=== PATIENT | female | born 1985 | race Hispanic/Latino ===

== ENCOUNTER 2018-01-27 03:23 | Inpatient (IN) | payer BC ==
[2018-01-27] MEDS ORDERED: LACTATED RINGERS 1,000 ML ONE (03:35)
[2018-01-27] MEDS ORDERED: XYLOCAINE 2% INFILTRATI ONE (03:37)
[2018-01-27] MEDS ORDERED: ePHEDrine SULFATE IV PRN ×2 (03:37→06:33)
[2018-01-27] MEDS ORDERED: MINERAL OIL PO PRN (03:37)
[2018-01-27] MEDS ORDERED: ZOFRAN IV PRN (03:37)
[2018-01-27] MEDS ORDERED: SUBLIMAZE IV PRN (03:37)
[2018-01-27] MEDS ORDERED: BRETHINE SUB-Q PRN (03:37)
--- NOTE | 2018-01-27 03:47 | History and Physical Report ---
History of Present Illness Date of examination: 01/27/18 (pt presents in active labor) History of present illness: EDC Calculations LMP: 01/21/2018 Past History : 4 Term Births: 2 Premature Births: 0 Living Children: 2 Para: 2 Mult. Births: 0 Prev : 0 Aborta: 1 Elect. Ab: 1 Spont. Ab: 0 Ectopics: 0 # 1 Delivery date: 02/16 Delivery type: EAB # 2 Delivery date: 10/06/2013 Weeks Gestation: 41 Delivery type: Vaginal Anesthesia type: epidural Delivery location: [facility] Sex: female weight: 7.25 # 3 Delivery date: 09/02/2015 Weeks Gestation: 41 Delivery type: Vaginal Hours of labor: 24 Anesthesia type: epidural Delivery location: [facility] Infant Sex: male weight: 8.75 Name: Sg Comments: Induction Past Medical History: Reviewed history from 10/03/2009 and no changes required: Negative Past Medical History Past Surgical History: D&C: (2011) Past Medical History 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 Infection History Hx of STD: none HIV Risk Eval: low risk Hepatitis B Risk Eval: low risk Personal hx. of genital herpes: no Genetic History Congenital Heart Defect: Mom: no Dad: no Monica Disease: Mom: no Dad: no Thalassemia Mom: no Dad: no Neural Tube Defect Mom: no Dad: no Down's Syndrome Mom: no Dad: no Michael-Sachs Mom: no Dad: no Sickle Cell Disease/Trait Mom: no Dad: no Hemophilia Mom: no Dad: no Muscular Dystrophy Mom: no Dad: no Cystic Fibrosis Mom: no Dad: no [place] Chorea Mom: no Dad: no Mental Retardation Mom: no Dad: no Fragile X Mom: no Dad: no Other Genetic/Chromosomal Disorder Mom: no Dad: no Child w/other defect Mom: no Dad: no Active Medications (reviewed today): JENI-BE 0.35 MG ORAL TABLET (NORETHINDRONE) 1 tablet q day Current Allergies (reviewed today): No known allergies Past History - Obstetrical History Expected Date of Delivery: 01/21/18 Actual Gestation: 40 Week(s) 6 Day(s) : 4 Para: 2 Hx # Term Pregnancies: 2 Number of Pregnancies: 0 Spontaneous Abortions: 0 Induced : 1 Number of Living Children: 2 Medications and Allergies Allergies Allergy/AdvReac Type Severity Reaction Status Date / Time No Known Allergies Allergy Verified 10/05/13 04:22 Home Medications Medication Instructions Recorded Confirmed Last Taken Type Acetaminophen [Tylenol] 650 mg PO Q6HR PRN 10/06/13 09/02/15 10/05/13 21:00 History 650 Calcium Carbonate [Tums] 500 mg PO Q4HR 10/06/13 09/02/15 10/02/13 19:00 History 500 Vits96/Iron Fum/Folic 1 tab PO DAILY 10/06/13 09/02/15 09/01/15 09:00 History [ Tablet] 1 Ibuprofen [Motrin 800 MG tab] 800 mg PO Q8HR PRN #30 tablet 09/03/15 Unknown Rx Active Meds: Active Medications Ephedrine Sulfate (Ephedrine Sulfate) 10 mg IV Q2M PRN PRN Reason: Hypotension Fentanyl (Sublimaze) 100 mcg IV Q2H PRN PRN Reason: Labor Pain Lactated Ringer's (Lactated Ringers) 1,000 mls @ 125 mls/hr IV DIRECT LINDA Oxytocin/Sodium Chloride (Pitocin/Ns 20 Unit/1000ml Drip) 20 units in 1,000 mls @ 125 mls/hr IV DIRECT LINDA Oxytocin/Sodium Chloride (Pitocin/Ns 30 Unit/500ml) 30 units in 500 mls @ 4 mls /hr IV TITR LINDA; Protocol Lidocaine (Xylocaine 2%) 20 ml INFILTRATI ONCE ONE Stop: 01/27/18 03:38 Mineral Oil (Mineral Oil) 30 ml PO QHS PRN PRN Reason: Constipation Ondansetron HCl (Zofran) 4 mg IV Q8H PRN PRN Reason: Nausea And Vomiting Terbutaline Sulfate (Brethine) 0.25 mg SUB-Q ONCE PRN PRN Reason: Hyperstimulation/Hypertonicity - Vital Signs Vital signs: Vital Signs Pulse BP 90 132/85 01/27/18 03:42 01/27/18 03:42 Temp Pulse Resp BP Pulse Ox 90 132/85 01/27/18 03:42 01/27/18 03:42 - Physical Exam Breasts: Positive: deferred Cardiovascular: Regular rate, Normal S1, Normal S2 Lungs: Positive: Normal air movement Abdomen: Positive: normal appearance, soft, normal bowel sounds. Negative: distention, tenderness Genitourinary (Female): Positive: normal external genitalia Vulva: both: normal Vagina: Positive: normal moisture. Negative: discharge Cervix: Negative: lesion, discharge Uterus: Positive: normal size, normal contour Adnexa: both: normal Anus/Rectum: Positive: normal perianal skin, heme negative. Negative: rectal mass, hemorrhoids Extremities: Positive: normal Deep Tendon Reflex Grade: Normal +2 - Obstetrical FHR: category 1 Uterine Contraction Monitor Mode: External Cervical Dilatation: 5 Cervical Effacement Percentage: 90 station: -1 Uterine Contraction Pattern: Regular Uterine Tone Measurement Phase: Resting Uterine Contraction Intensity: Moderate Results All other labs normal. GBS Negative with 35wk testing HBsAg Screen Negative Negative *1 RPR Non Reactive Non Reactive *2 Rubella Antibodies, IgG 4.20 index Immune >0.99 *3 Non-immune <0.90 Equivocal 0.90 - 0.99 Immune >0.99 ABO Grouping A *4 Rh Factor Positive *5 Please note: Prior records for this patient's ABO / Rh type are not available for additional verification. Antibody Screen Negative Negative *6 WBC 8.3 x10E3/uL 3.4-10.8 *7 RBC 4.09 x10E6/uL 3.77-5.28 *8 Hemoglobin 12.2 g/dL 11.1-15.9 *9 Hematocrit 37.4 % 34.0-46.6 *10 MCV 91 fL 79-97 *11 MCH 29.8 pg 26.6-33.0 *12 MCHC 32.6 g/dL 31.5-35.7 *13 RDW 14.1 % 12.3-15.4 *14 Platelets 286 x10E3/uL 150-379 *15 Neutrophils 69 % Not Estab. *16 Lymphs 21 % Not Estab. *17 Monocytes 8 % Not Estab. *18 Eos 2 % Not Estab. *19 Basos 0 % Not Estab. *20 ! Immature Cells <No Reported Value> *21 Neutrophils (Absolute) 5.7 x10E3/uL 1.4-7.0 *22 Lymphs (Absolute) 1.7 x10E3/uL 0.7-3.1 *23 Monocytes(Absolute) 0.6 x10E3/uL 0.1-0.9 *24 Eos (Absolute) 0.2 x10E3/uL 0.0-0.4 *25 Baso (Absolute) 0.0 x10E3/uL 0.0-0.2 *26 ! Immature Granulocytes 0 % Not Estab. *27 ! Immature Grans (Abs) 0.0 x10E3/uL 0.0-0.1 *28 ! NRBC <No Reported Value> *29 Hematology Comments: <No Reported Value> *30 Tests: (2) HB Solu + Rflx Frac (922518) Hemoglobin (Hgb) Solubility Negative Negative *31 Tests: (3) Panel 322828 (003174) HIV Screen 4th Generation wRfx Non Reactive Non Reactive *32 Tests: (4) HCV Ab w/Rflx to Verification ([id number]) ! HCV Ab 0.1 s/co ratio 0.0-0.9 *33 Tests: (5) Comment: ([id number]) ! Comment: SPRCS *34 Non reactive HCV antibody screen is consistent with no HCV infection, unless recent infection is suspected or other evidence exists to indicate HCV infection. Tests: (6) Urine Culture, Routine (809918) Urine Culture, Routine Final report *35 Tests: (7) Result ([id number]) ! Result 1 MUG *36 Mixed urogenital adri 25,000-50,000 colony forming units per mL Assessment and Plan 32yo @ 40w6d in active labor. SVE 5,90,-1 GBS negative Orders in EMR Anticipate delivery
[2018-01-27] MEDS ORDERED: LACTATED RINGERS 1,000 ML IV SCH (04:00)
[2018-01-27] MEDS ORDERED: PITOCin/NS 30 UNIT/500ML 30 UNITS/500 ML BAG IV SCH (04:00)
[2018-01-27 04:38] LABS: Hematocrit 34.1 % (30.3-42.9); Hemoglobin 11.4 gm/dl (10.1-14.3); Mean Corpuscular HGB Conc 34 % (30-34); Mean Corpuscular Hemoglobin 30 pg (28-32); Mean Corpuscular Volume 89 fl (79-97); Platelet Count 215 K/mm3 (140-440); Red Blood Count 3.83 M/mm3 (3.65-5.03); Red Cell Distribution Width 14.2 % (13.2-15.2)
[2018-01-27] MEDS ORDERED: NARCAN 2 MG/2 ML IV PRN (06:33)
--- NOTE | 2018-01-27 06:35 | Anesthesia Consultation ---
Anesthesia Consult and Med Hx Date of service: 01/27/18 - Airway Anesthetic Teeth Evaluation: Good ROM Head & Neck: Adequate Mental/Hyoid Distance: Adequate Mallampati Class: Class II Intubation Access Assessment: Probably Good - Pulmonary Exam CTA: Yes - Cardiac Exam Cardiac Exam: RRR - Pre-Operative Health Status ASA Pre-Surgery Classification: ASA2 Proposed Anesthetic Plan: Epidural, Spinal - Pulmonary Hx Smoking: No Hx Asthma: No COPD: No Hx Pneumonia: No - Cardiovascular System Hx Hypertension: No - Central Nervous System Hx Seizures: No Hx Psychiatric Problems: No - Endocrine Hx Renal Disease: No Hx End Stage Renal Disease: No Hx Hypothyroidism: No Hx Hyperthyroidism: No - Hematic Hx Anemia: No Hx Sickle Cell Disease: No - Other Systems Hx Alcohol Use: No
--- NOTE | 2018-01-27 06:51 | Progress Note ---
Assessment and Plan All concerns explained to pt and SO by Close observation. Pt A&O x 3. FHR Cat 1. SVE 8,100,-1 states do NOT start pump w/o anesthesia assessment. Will continue monitoring Anticipate delivery. Subjective - Subjective Date of service: 01/27/18 (+ test dose with epidural; maternal tachycardia and mildly altered mental status) Interval history: EDC Calculations LMP: 01/21/2018 Past History : 4 Term Births: 2 Premature Births: 0 Living Children: 2 Para: 2 Mult. Births: 0 Prev : 0 Aborta: 1 Elect. Ab: 1 Spont. Ab: 0 Ectopics: 0 # 1 Delivery date: 02/16 Delivery type: EAB # 2 Delivery date: 10/06/2013 Weeks Gestation: 41 Delivery type: Vaginal Anesthesia type: epidural Delivery location: [facility] Infant Sex: female weight: 7.25 # 3 Delivery date: 09/02/2015 Weeks Gestation: 41 Delivery type: Vaginal Hours of labor: 24 Anesthesia type: epidural Delivery location: [facility] Sex: male weight: 8.75 Name: Sg Comments: Induction Past Medical History: Reviewed history from 10/03/2009 and no changes required: Negative Past Medical History Past Surgical History: D&C: (2011) Past Medical History 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 Infection History Hx of STD: none HIV Risk Eval: low risk Hepatitis B Risk Eval: low risk Personal hx. of genital herpes: no Genetic History Congenital Heart Defect: Mom: no Dad: no Monica Disease: Mom: no Dad: no Thalassemia Mom: no Dad: no Neural Tube Defect Mom: no Dad: no Down's Syndrome Mom: no Dad: no Michael-Sachs Mom: no Dad: no Sickle Cell Disease/Trait Mom: no Dad: no Hemophilia Mom: no Dad: no Muscular Dystrophy Mom: no Dad: no Cystic Fibrosis Mom: no Dad: no [place] Chorea Mom: no Dad: no Mental Retardation Mom: no Dad: no Fragile X Mom: no Dad: no Other Genetic/Chromosomal Disorder Mom: no Dad: no Child w/other defect Mom: no Dad: no Active Medications (reviewed today): JENI-BE 0.35 MG ORAL TABLET (NORETHINDRONE) 1 tablet q day Current Allergies (reviewed today): No known allergies Patient reports: movement normal Objective - Vital Signs Vital Signs: Vital Signs - 12hr 01/27/18 01/27/18 01/27/18 03:39 03:42 04:25 Temperature 98.7 F Pulse Rate 90 90 93 H Respiratory 18 16 Rate Blood Pressure 132/85 Blood Pressure 132/85 [Left] Blood Pressure 126/77 [Right] O2 Sat by Pulse 99 Oximetry 01/27/18 01/27/18 01/27/18 04:31 05:39 05:44 Temperature Pulse Rate 84 85 96 H Respiratory Rate Blood Pressure 126/77 Blood Pressure [Left] Blood Pressure [Right] O2 Sat by Pulse 99 99 99 Oximetry 01/27/18 01/27/18 01/27/18 05:49 05:52 05:54 Temperature Pulse Rate 84 91 H 87 Respiratory Rate Blood Pressure 120/62 Blood Pressure [Left] Blood Pressure [Right] O2 Sat by Pulse 99 98 Oximetry 01/27/18 01/27/18 01/27/18 05:59 06:01 06:04 Temperature Pulse Rate 122 H 142 H 136 H Respiratory Rate Blood Pressure 119/76 139/73 Blood Pressure [Left] Blood Pressure [Right] O2 Sat by Pulse 98 Oximetry 01/27/18 01/27/18 01/27/18 06:05 06:08 06:10 Temperature Pulse Rate 54 L 121 H 139 H Respiratory Rate Blood Pressure 127/70 Blood Pressure [Left] Blood Pressure [Right] O2 Sat by Pulse 83 L 99 Oximetry 01/27/18 01/27/18 01/27/18 06:13 06:15 06:18 Temperature Pulse Rate 98 H 116 H 109 H Respiratory Rate Blood Pressure 121/66 123/66 Blood Pressure [Left] Blood Pressure [Right] O2 Sat by Pulse 99 Oximetry 01/27/18 01/27/18 01/27/18 06:20 06:23 06:25 Temperature Pulse Rate 119 H 105 H 136 H Respiratory Rate Blood Pressure 112/61 Blood Pressure [Left] Blood Pressure [Right] O2 Sat by Pulse 100 99 Oximetry 01/27/18 01/27/18 01/27/18 06:29 06:30 06:33 Temperature Pulse Rate 106 H 105 H 98 H Respiratory Rate Blood Pressure 120/56 116/66 Blood Pressure [Left] Blood Pressure [Right] O2 Sat by Pulse 98 Oximetry 01/27/18 01/27/18 01/27/18 06:35 06:40 06:45 Temperature Pulse Rate 106 H 94 H 90 Respiratory Rate Blood Pressure Blood Pressure [Left] Blood Pressure [Right] O2 Sat by Pulse 98 98 97 Oximetry - Exam Breasts: deferred Cardiovascular: Regular rate, Other (HR 130-140 immediately with partial test dose) Lungs: Normal air movement Abdomen: Present: normal appearance, soft. Absent: distention, tenderness Uterus: Present: normal FHR: auscultation normal, category 1 Uterine Contraction Monitor Mode: Internal Cervical Dilatation: 8 (ISE applied for accurate assesment) Cervical Effacement Percentage: 100 station: -1 Uterine Contraction Pattern: Regular Uterine Tone Measurement Phase: Resting Uterine Contraction Intensity: Moderate Extremities: normal Deep Tendon Reflex Grade: Normal +2 - Labs Labs: Laboratory Results - last 24 hr 01/27/18 01/27/18 03:50 03:50 WBC 8.0 RBC 3.83 Hgb 11.4 Hct 34.1 MCV 89 MCH 30 MCHC 34 RDW 14.2 Plt Count 215 Blood Type A POSITIVE Antibody Screen Negative
[2018-01-27] MEDS ORDERED: fentaNYL-BUPIV 2 MCG/ML-0.125% 200 MCG/100 ML BAG EPIDURAL SCH (07:00)
[2018-01-27] MEDS ORDERED: CYTOTEC ONE ×2 (07:43)
[2018-01-27] MEDS ORDERED: METHERGINE IM ONE ×2 (07:53→08:06)
[2018-01-27] MEDS: PITOCin/NS 20 UNIT/1000ML DRIP 20 UNITS/1,000 ML BAG IV SCH ×2 (07:55→09:23)
[2018-01-27] MEDS ORDERED: CYTOTEC PR ONE ×2 (08:06→08:08)
--- NOTE | 2018-01-27 08:17 | Procedure Note ---
OB Delivery Note - Architectural Drafting Instructor: MAIA ASH Estimated blood loss: other (600cc) - Vaginal Delivery presentation: vertex Delivery position: OA Intrapartum events: none Delivery induction: none Delivery monitor: external uterine, internal FHT Route of delivery: Delivery placenta: spontaneous, uterine exploration (PPH; lower uterine atony) Delivery cord: 3 umbilical vessels Episiotomy: none Delivery laceration: none Anesthesia: epidural Delivery comments: Pt having severe left side and back pain; SVE complete. Instructed to push. live born male over intact perineum Skin to skin with mom. IV infiltrated. Pit IM given Placenta and membrane del complete and intact, 3 vessel cord. FF with lower uterine atony. Cytotec 800mcg MA placed. Continued massage. Again several large clots removed. IV restarted Pit IVFs. Methergine IM given. 8 /9, EBL 600+, Wgt 8-10. Mom and baby remain LDR stable. FF @ umb Lochia moderate. - A at 1 minute: 8 at 5 minutes: 9 Gender: Female (wgt 8-10)
[2018-01-27] MEDS ORDERED: PHENERGAN PO PRN (08:30)
[2018-01-27] MEDS ORDERED: TUCKS PAD TP PRN (08:30)
[2018-01-27] MEDS ORDERED: BENADRYL PO PRN (08:30)
[2018-01-27] MEDS ORDERED: NORCO 5/325 PO PRN (08:30)
[2018-01-27] MEDS ORDERED: TYLENOL PO PRN (08:30)
[2018-01-27] MEDS ORDERED: LANSINOH TP PRN (08:30)
[2018-01-27] MEDS ORDERED: SODIUM CHLORIDE FLUSH SYRINGE 10 ML IV PRN (09:00)
[2018-01-27] MEDS: MOTRIN PO SCH ×3 (09:22→19:17)
[2018-01-27] MEDS ORDERED: DULCOLAX PR PRN (10:00)
[2018-01-27] MEDS ORDERED: MOTRIN PO SCH (14:00)
[2018-01-27] MEDS: METHERGINE PO SCH ×2 (14:39→21:37)
[2018-01-27 17:18] LABS: Hemoglobin 10.6 gm/dl (10.1-14.3); Mean Corpuscular HGB Conc 34 % (30-34); Mean Corpuscular Hemoglobin 30 pg (28-32); Mean Corpuscular Volume 89 fl (79-97); Platelet Count 196 K/mm3 (140-440); Red Cell Distribution Width 14.1 % (13.2-15.2)
[2018-01-27] MEDS ORDERED: MILK OF MAGNESIA PO PRN (22:00)
[2018-01-28 01:38] LABS: Hematocrit 29.5 % (30.3-42.9)
[2018-01-28] MEDS: METHERGINE PO SCH (05:36)
[2018-01-28] MEDS ORDERED: BOOSTRIX IM ONE (06:00)
--- NOTE | 2018-01-28 07:29 | Discharge Summary ---
Providers - Providers Date of Admission: 01/27/18 04:03 Date of discharge: 01/28/18 (desires d/c home) Attending physician: FINA RICHARDS Primary care physician: FINA RICHARDS Hospitalization Reason for admission: labor Condition: Good Pertinent studies: post delivery H&H 10.0/29.5 Procedures: vaginal delivery complicated by hemorrhage Hospital course: vaginal delivery complicated by PPH, uncomplicated course Disposition: DC-01 TO HOME OR SELFCARE - Discharge Diagnoses (1) Spontaneous vaginal delivery Status: Acute Core Measure Documentation - Palliative Care Palliative Care/ Comfort Measures: Not Applicable - Core Measures Any of the following diagnoses?: none Exam - Constitutional Vitals: Temp Pulse Resp BP Pulse Ox 98.0 F 103 H 20 121/76 93 01/28/18 00:46 01/28/18 00:46 01/28/18 00:46 01/28/18 00:46 01/28/18 00:46 General appearance: Present: no acute distress, well-nourished - EENT Eyes: Present: PERRL ENT: hearing intact, clear oral mucosa - Neck Neck: Present: supple, normal ROM - Respiratory Respiratory effort: normal Respiratory: bilateral: CTA - Cardiovascular Heart Sounds: Present: S1 & S2. Absent: rub, click - Extremities Extremities: pulses symmetrical, No edema Peripheral Pulses: within normal limits - Abdominal General gastrointestinal: Present: soft, non-tender, non-distended, normal bowel sounds Female genitourinary: Present: normal - Integumentary Integumentary: Present: clear, warm, dry - Musculoskeletal Musculoskeletal: gait normal, strength equal bilaterally - Psychiatric Psychiatric: appropriate mood/affect, intact judgment & insight - Neurologic Neurologic: CNII-XII intact, moves all extremities - Additional findings Additional findings: with good latch, lochia scant, fundus firm, VSSAF Plan Activity: no restrictions Diet: regular Follow up with: FINA RICHARDS MD [Primary Care Provider] - 02/28/18 (Congratulations! Please call [phone] to schedule your visit in 4 weeks. Call for any questions or concerns. )
[2018-01-28] MEDS: MOTRIN PO SCH (08:00)
[2018-01-28] MEDS ORDERED: M-M-R II VACCINE SUB-Q ONE (11:00)
[2018-01-28 13:59] VITALS: BP 114/78
== END 2018-01-28 13:45 | disposition home or self-care (01) | DRG 774 ==
LOC: TRG 03:23 → LD 04:03 → OB 10:24
PROVIDERS: ADMIT Obstetrics & Gynecology; ATTEND Obstetrics & Gynecology
PROC: 10E0XZZ Delivery of Products of Conception, External Approach (ICD-10-PCS; principal; 2018-01-27)
PROC: 3E0R3BZ Introduction of Anesthetic Agent into Spinal Canal, Percutaneous Approach (ICD-10-PCS; 2018-01-27)
PROC: 00HU33Z Insertion of Infusion Device into Spinal Canal, Percutaneous Approach (ICD-10-PCS; 2018-01-27)
PROC: 3E0234Z Introduction of Serum, Toxoid and Vaccine into Muscle, Percutaneous Approach (ICD-10-PCS; 2018-01-28)
DX: O72.1 Other immediate postpartum hemorrhage (principal); Z3A.40 40 weeks gestation of pregnancy; Z37.0 Single live birth; Z23 Encounter for immunization
CPT/HCPCS: 36415; 85014; 85018; 85027; 86592; 86850; 86900; 86901; 90471; 90715; 99211; G0463; J2210; J2590; J3010; J7120